=== PATIENT | male | born 1950 | race Caucasian/White ===

== ENCOUNTER 2017-04-18 06:25 | Inpatient (IN) ==
[2017-04-11 17:27] LABS: Appearance,Urine CLEAR; Bilirubin,Urine NEG (NEG); Color,Urine YELLOW; Glucose,Urine (UA) NEGATIVE (NEG); Leukocyte Esterase,Urine NEG /uL (NEG); Nitrate,Urine NEG (NEG); Protein,Urine NEG (NEG); Specific Gravity,Urine 1.015 (1.000-1.035); Urine Blood NEG mg/dL (<0.03); Urobilinogen,Urine NEG (NEG)
[2017-04-11 17:48] LABS: Basophils # (Auto) 0 K/mcL (0.0-0.3); Basophils % (Auto) 0.3 % (0.0-2.0); Eosinophils # (Auto) 0.3 K/mcL (0.0-0.7); Eosinophils % (Auto) 2.9 % (0.0-7.0); Granulocytes % (Auto) 67.1 % (38.0-78.0); Lymphocytes # (Auto) 2.5 K/mcL (1.5-4.8); Lymphocytes % (Auto) 23.4 % (15.5-49.0); Mean Cell Volume 92.3 fL (80.0-100.0); Mean Corpuscular HGB Conc 33.9 g/dL (31.0-36.0); Mean Corpuscular Hemoglobin 31.3 pg (26.0-34.0); Monocytes # (Auto) 0.7 K/mcL (0.1-0.9); Monocytes % (Auto) 6.3 % (1.0-12.0); Platelet Count 247 K/mcL (140-440); RBC 4.91 M/mcL (4.50-5.90); Red Cell Distribution Width 12.6 % (11.5-14.5)
[2017-04-11 18:02] LABS: Blood Urea Nitrogen 12 mg/dl (8-23)
[~2017-04-18 06:25] MED LIST: ACETAMINOPHEN 500 MG TABLET PO SCH; CELECOXIB 200 MG CAPSULE PO SCH; PREGABALIN 75 MG CAPSULE PO SCH; ceFAZolin 1 GM VIAL IV SCH; oxyCODONE 10 MG TAB.ER.12H PO SCH
[2017-04-18] MEDS ORDERED: ePHEDrine 50 MG/ML AMPUL IV ONE (09:40)
[2017-04-18] MEDS ORDERED: MIDAZOLAM 2 MG/2 ML VIAL IV ONE (09:40)
[2017-04-18] MEDS ORDERED: ROPIVACAINE HCL/PF 30 ML VIAL IJ ONE (09:40)
[2017-04-18] MEDS ORDERED: PHENYLEPHRINE 10 MG/ML VIAL IV ONE (09:40)
[2017-04-18] MEDS ORDERED: PROPOFOL 200 MG/20 ML VIAL IV ONE (09:40)
[2017-04-18] MEDS ORDERED: LIDOCAINE HCL/PF 100 MG/5 ML SYRINGE IV ONE (09:40)
[2017-04-18] MEDS ORDERED: KETAMINE 100 MG/ML ML IV ONE (09:40)
[2017-04-18] MEDS ORDERED: GENTAMICIN SULFATE 800 MG/20 ML VIAL IR ONE (10:21)
--- NOTE | 2017-04-18 11:06 | Brief Operative Note ---
Date of procedure: 04/18/17 Pre-op diagnosis: Left shoulder rca and bicep tear Post-op diagnosis: same Procedure: left reverse tsa and bicep tenodesis Grafts/Implants: Yes Anesthesia: GETA Complications: none Surgeon: Aníbal Aggarwal Research Kennel Supervisor: Sabino Chicas Estimated blood loss (cc): 50 Specimens Removed/Pathology: none sent Condition: stable Disposition: PACU
[2017-04-18] MEDS ORDERED: TEMAZEPAM 15 MG CAPSULE PO PRN (11:07)
[2017-04-18] MEDS ORDERED: FLEETS ADULT ENEMA PR PRN (11:07)
[2017-04-18] MEDS ORDERED: ONDANSETRON 4 MG/2 ML VIAL IV PRN ×2 (11:07→11:14)
[2017-04-18] MEDS ORDERED: TRANEXAMIC ACID 1,000 MG/10 ML VIAL IV ONE (11:07)
[2017-04-18] MEDS ORDERED: BENZOCAINE/MENTHOL 1 LOZENGE PO PRN ×2 (11:07→11:14)
[2017-04-18] MEDS ORDERED: BISACODYL 10 MG SUPP.RECT PR PRN (11:07)
[2017-04-18] MEDS ORDERED: MAGNESIUM HYDROXIDE 30 ML ORAL.SUSP PO PRN (11:07)
[2017-04-18] MEDS ORDERED: POLYETHYLENE GLYCOL 3350 17 GM PACKET PO PRN (11:07)
[2017-04-18] MEDS ORDERED: ACETAMINOPHEN 325 MG TABLET PO PRN (11:07)
[2017-04-18] MEDS ORDERED: HYDROcodone/APAP 10/325MG TABLET PO PRN (11:08)
[2017-04-18] MEDS ORDERED: IPRATROPIUM/ALBUTEROL 3 ML AMPUL.NEB NEB PRN (11:14)
[2017-04-18] MEDS ORDERED: MEPERIDINE 25 MG/ML SYRINGE IV PRN (11:14)
[2017-04-18] MEDS ORDERED: METHOCARBAMOL 1,000 MG/10 ML VIAL IV PRN (11:14)
[2017-04-18] MEDS ORDERED: ePHEDrine 50 MG/ML AMPUL IV PRN (11:14)
[2017-04-18] MEDS ORDERED: LACTATED RINGERS 1,000 ML IV SCH (11:15)
[2017-04-18] MEDS: fentaNYL 100 MCG/2 ML VIAL IV PRN ×5 (11:30→11:50)
[2017-04-18] MEDS: HYDROmorphone 2 MG/ML SYRINGE IV PRN ×10 (11:45→14:28)
[2017-04-18] MEDS: KETOROLAC 15 MG/ML VIAL IV PRN (12:02)
--- NOTE | 2017-04-18 12:10 | XRay Report ---
CLINICAL INFORMATION: Postsurgical follow-up TECHNIQUE: Portable AP and Y views COMPARISON: None. FINDINGS: Status post left reverse shoulder arthroplasty. Alignment is anatomic IMPRESSION: Reversal arthroplasty Interpreted and Authenticated by: Julián Shaw 04/18/17
[2017-04-18] MEDS ORDERED: diphenhydrAMINE 50 MG/ML VIAL IM ONE (12:17)
[2017-04-18] MEDS ORDERED: MEPERIDINE 50 MG/ML SYRINGE IM ONE (12:17)
[2017-04-18] MEDS: 0.45 % SODIUM CHLORIDE 1,000 ML IV SCH ×2 (14:33→21:29)
[2017-04-18] MEDS: 0.9 % SODIUM CHLORIDE 10 ML SYRINGE IV SCH ×2 (14:53→23:37)
--- NOTE | 2017-04-18 15:30 | Operative Note ---
DATE OF OPERATION: 04/18/2017 PREOPERATIVE DIAGNOSIS: Left shoulder rotator cuff arthropathy with biceps tendinopathy and degenerative arthritis. POSTOPERATIVE DIAGNOSIS: Left shoulder rotator cuff arthropathy with biceps tendinopathy and degenerative arthritis. PROCEDURE: Left reverse total shoulder with biceps tenodesis. SURGEON: Aníbal Aggarwal MD SALES PROPERTY MANAGER: Sabino Chicas PA-C ANESTHESIA: General LMA anesthesia. COMPLICATIONS: None. ESTIMATED BLOOD LOSS: 50 mL DESCRIPTION OF PROCEDURE: The patient was brought to the operating room and put to sleep with general LMA anesthesia. Once asleep, patient had the left shoulder sterilely prepped and draped in the usual sterile fashion. Once this was done, we confirmed he received antibiotics and tranexamic acid and Ioban placed over the skin. We made a deltopectoral approach to the left shoulder and identified the anterior capsule and subscap. The subscap was released. The biceps tendon was released. Once done, we then dislocated the humeral head and then we made the cut just below the articular surface of the anatomical neck region. Once done, with 30 degrees of retroversion the cut had been made. A metal plate was used to protect the humeral surface. We then reduced and subluxed the shoulder posteriorly, performed a 360-degree capsulotomy and release. We then placed a pin centrally and reamed to a 40 reamer. Once done, the metaglene was secured with 4 screws. The central screw was a 32 mm screw and three additional screws. We then placed a 40 mm outer body with a +2 eccentricity and +6 offset. This was reduced very nicely. We tapped this into place and then made sure it was secure. I then broached the humerus up to the size of 11 and trialed a size 11 with a standard thickness poly. This seemed to be appropriate. I then reduced the shoulder and took it through a range of motion, very stable. We then opened a size 11 stem which was tapped into the joint and then a standard thickness poly was placed. This reduced nicely with good tension. We irrigated thoroughly and took the shoulder through full range of motion. We irrigated thoroughly and then flushed the shoulder with copious amounts of irrigation, closed the deltopectoral interval with 2-0 Vicryl and closed the skin with 2-0 Vicryl and adhesive closure. Sterile bandage applied. A Donjoy sling was fitted and given to the patient. Blood loss about 50 mL. RBH:ariela Job ID: [id number] Doc ID: [id number] Aníbal Aggarwal MD
[2017-04-18] MEDS: HYDROcodone/APAP 10/325MG TABLET PO PRN ×2 (17:13→23:38)
[2017-04-18] MEDS: metFORMIN 500 MG TABLET PO SCH (17:13)
[2017-04-18] MEDS: ceFAZolin 1 GM VIAL IV SCH (19:08)
[2017-04-18] MEDS: DOCUSATE SODIUM 100 MG CAPSULE PO SCH (20:59)
[2017-04-18] MEDS ORDERED: SENNOSIDES 1 TABLET PO SCH (21:00)
[2017-04-19] MEDS: ceFAZolin 1 GM VIAL IV SCH (01:42)
[2017-04-19] MEDS: HYDROcodone/APAP 10/325MG TABLET PO PRN ×3 (01:47→09:31)
[2017-04-19] MEDS: 0.9 % SODIUM CHLORIDE 10 ML SYRINGE IV SCH ×2 (02:53→04:56)
[2017-04-19] MEDS ORDERED: LISINOPRIL 20 MG TABLET PO SCH (09:00)
[2017-04-19] MEDS ORDERED: TAMSULOSIN 0.4 MG CAPSULE PO SCH (09:00)
--- NOTE | 2017-04-19 09:13 | Orthopedic Progress Note ---
Subjective Patient information: Note initiated : 04/19/17 at 9:11 am Service Date, if different from initiated Date: [] Patient: Travis James 66 y/o M admitted on 04/18/17 for Left Reverse Total Shoulder Arthroplasty. Chief Complaint: [left shoulder pain more than most as he is only taking 1 pain pill at a time] Objective Vital signs: Vital Signs Temp Pulse Resp BP BP Pulse Ox 04/19/17 07:15 98.0 F 16 128/75 95 04/19/17 04:00 98.0 F 70 16 115/64 92 04/19/17 00:00 97.7 F 73 16 119/72 95 04/18/17 20:00 97.6 F 79 16 111/68 95 04/18/17 15:30 110/63 94 04/18/17 14:30 112/74 93 04/18/17 14:00 119/69 95 04/18/17 13:30 97.1 F 112/67 99 04/18/17 13:15 93/64 94 04/18/17 13:00 122/83 93 04/18/17 12:45 95.9 F L 16 131/76 98 04/18/17 12:35 97.0 F 86 16 128/82 100 04/18/17 12:20 97.0 F 87 16 148/82 97 04/18/17 12:00 97.0 F 95 H 16 142/62 99 04/18/17 11:50 97.0 F 95 H 16 148/75 98 04/18/17 11:35 97.0 F 96 H 16 143/70 97 04/18/17 11:30 97.0 F 92 H 16 107/57 98 04/18/17 11:25 97.0 F 98 H 16 100/57 98 04/18/17 11:20 97.0 F 90 16 133/94 98 Intake and Output 04/18/17 04/19/17 04/19/17 21:59 05:59 13:59 Intake Total 1700 / 1700 600 / 600 Output Total 120 / 120 1400 / 1400 Balance -120 / -120 300 / 300 600 / 600 Intake: IV 1000 / 1000 Sodium Chloride 0.45% 1, 1000 / 1000 000 ml @ 100 mls/hr IV . Q10H [facility] Rx#:[id number] Oral 700 / 700 600 / 600 Output: Void Amount 120 / 120 1400 / 1400 Other: Meal Breakfast Percent of Meal Consumed 100% # Voids 1 3 Weight 234 lb 3.2 oz Intake & Output: Intake & Output 04/18/17 04/19/17 04/19/17 21:59 05:59 13:59 Intake Total 1700 / 1700 600 / 600 Output Total 120 / 120 1400 / 1400 Balance -120 / -120 300 / 300 600 / 600 Weight 234 lb 3.2 oz Intake: IV 1000 / 1000 Sodium Chloride 0.45% 1, 1000 / 1000 000 ml @ 100 mls/hr IV . Q10H [facility] Rx#:[id number] Oral 700 / 700 600 / 600 Output: Void Amount 120 / 120 1400 / 1400 Other: Meal Breakfast Percent of Meal Consumed 100% # Voids 1 3 Incision: Yes healing Incision clean and dry: Yes Dressing: Yes clean Weight bearing status: full Neurological exam IM: Yes oriented X3, Yes neurovascular intact Extremities exam IM: Yes Foot pink and warm (dc home), Yes neurovascular intact - Labs CBC & BMP: 04/11/17 15:43 04/11/17 15:43 Labs: Orthopedic Labs 04/11/17 15:43 PT 12.8 INR 0.9 APTT 28 04/11/17 15:43 Hgb 15.3 Hct 45.3
--- NOTE | 2017-04-19 09:16 | Discharge Summary ---
Ortho Discharge - TSA - Patient Instructions Diet: Regular Diet Activity: activity as tolerated, weight bearing as tolerated Total Shoulder Protocol: Leave immobilizer in place except for bathing and ROM. Abduction pillow. Continue to wear sling until seen by physician. Codman Pendulum : These exercises use momentum produced by your body to move your shoulder joint. Bend your knees and shift your weight to your front leg, then back, allowing your arm to swing in the same directions. Using the same technique, alternately shift your weight between your right and left legs, allowing your arm to swing from side to side. These exercises are also performed in counterclockwise and clockwise circular motions. Typically these exercises are performed several times per day, for a set number repetitions or minutes, such as 20 times in a row or 5 minutes at a time. Dressing Care: Carylel Ag - leave on for 5 days Patient Education: Shoulder Arthroplasty (DC) Additional Instructions: Discharge Instructions: Do the exercises at home that physical therapy gave you. You are scheduled to start physical therapy at [facility] in [place] ([phone]) on at 10:15 am, please arrive 15 minutes early for paperwork. Take your prescription, photo ID, insurance cards, and current medication list with you to your first physical therapy appointment. Take your prescription to picker machine operator any medication or equipment (such as walker, crutches, toilet riser or C.P.M.) Wear comfortable clothing for your physical therapy. No weight bearing with left arm/hand. Keep arm in the immobilizer except for showering and exercises. You have Dermabond (a dressing with a mesh-like appearance), leave open to air. Do not remove this dressing. You may start showering on post op day #2. The Dermabond dressing can get wet, do not scrub dressing. Pat dry. To avoid constipation while taking any narcotic pain medication, take an over the counter stool softener/laxative. Use ice packs as directed, on for 20 minutes at a time throughout the day. This and elevation will help with pain and swelling. Call your physician for fevers above 100.5 or pain not controlled by medication. Your prescriptions are with your discharge information. Some medications were electronically transmitted to your pharmacy of choice. - Follow Up Plan Follow Up Appointments: Aníbal Aggarwal MD [Physician] - 05/01/17 2:20 pm Disposition: Home, Self-Care Prognosis: Good Rehab Potential: Good I certify that the patient requires SNF services: No Overall status at discharge: patient is progressing back to baseline - Orders For Discharge Additional Discharge Orders: Physical Therapy at Discharge - TSA Location: Determined By Patient Brace/Splint Location: Determined By Patient
[2017-04-19] MEDS: KETOROLAC 15 MG/ML VIAL IV PRN (09:24)
[2017-04-19] MEDS: HYDROmorphone 2 MG/ML SYRINGE IV PRN (09:25)
[2017-04-19] MEDS: DOCUSATE SODIUM 100 MG CAPSULE PO SCH (09:29)
[2017-04-19] MEDS: metFORMIN 500 MG TABLET PO SCH (09:29)
== END 2017-04-19 11:30 | disposition home or self-care (01) | DRG 483 ==
LOC: MEDSUR 06:25
PROVIDERS: ADMIT Orthopaedic Surgery; ATTEND Orthopaedic Surgery